=== PATIENT | male | born 1995 | race Caucasian/White ===

== ENCOUNTER 2016-10-19 00:20 | Emergency (ER) | payer SELFPAY ==
[2016-10-19] MEDS ORDERED: Albuterol/Ipratropium 3.0-0.5 MG/3 ML Neb Soln NEB ONE (00:45)
--- NOTE | 2016-10-19 00:45 | EDM.PDOC ---
ED HPI GENERAL MEDICAL PROBLEM - General Chief Complaint: Respiratory Problem Stated Complaint: ASTHMA Time Seen by Provider: 10/19/16 00:44 Source of Information: Reports: Patient - History of Present Illness INITIAL COMMENTS - FREE TEXT/NARRATIVE: HISTORY AND PHYSICAL: History of present illness: []Patient presents with history of asthma has been out of Advair and does not have a compressor for his DuoNeb sent home, he is in no distress at this time he has been having some problems with wheezing and shortness of breath since he has been out of Advair he has had cough and intermittent shortness of breath for 2 weeks since being out of his medication. No current shortness of breath no fever nausea vomiting chills sweats no chest pain shortness breath headache dizziness or palpitation no bowel or urine symptoms Review of systems: As per history of present illness and below otherwise all systems reviewed and negative. Past medical history: As per history of present illness and as reviewed below otherwise noncontributory. Surgical history: As per history of present illness and as reviewed below otherwise noncontributory. Social history: No reported history of drug or alcohol abuse. Family history: As per history of present illness and as reviewed below otherwise noncontributory. Physical exam: HEENT: Atraumatic, normocephalic, pupils reactive, negative for conjunctival pallor or scleral icterus, mucous membranes moist, throat clear, neck supple, nontender, trachea midline. Lungs: Clear to auscultation, breath sounds equal bilaterally, chest nontender. Heart: S1S2, regular, negative for clicks, rubs, or JVD. Abdomen: Soft, nondistended, nontender. Negative for masses or hepatosplenomegaly. Negative for costovertebral tenderness. Pelvis: Stable nontender. Genitourinary: Deferred. Rectal: Deferred. Extremities: Atraumatic, negative for cords or calf pain. Neurovascular unremarkable. Neuro: Awake, alert, oriented. Cranial nerves II through XII unremarkable. Cerebellum unremarkable. Motor and sensory unremarkable throughout. Exam nonfocal. Diagnostics: []Chest x-ray Therapeutics: []DuoNeb Advair discus 250 per 5 HFA rescue inhaler Follow-up with primary care and establish care A compressor may be obtained med [facility] Impression: []Asthma Definitive disposition and diagnosis as appropriate pending reevaluation and review of above. chest area Pain Score (Numeric/FACES): 3 - Related Data Allergies Allergy/AdvReac Type Severity Reaction Status Date / Time No Known Allergies Allergy Verified 10/19/16 00:33 Home Meds: Home Meds Albuterol [Proventil HFA] 6.7 gm INH Q4H 10/19/16 [History] Fluticasone/Salmeterol [Advair Diskus 250-50] 1 puff INH ONETIME 10/19/16 [ History] Past Medical History HEENT History: Reports: None Cardiovascular History: Reports: None Respiratory History: Reports: Asthma Gastrointestinal History: Reports: None Genitourinary History: Reports: None Musculoskeletal History: Reports: None Neurological History: Reports: Seizure Psychiatric History: Reports: Anxiety, Depression Endocrine/Metabolic History: Reports: None Hematologic History: Reports: None Immunologic History: Reports: None Oncologic (Cancer) History: Reports: None Dermatologic History: Reports: None - Infectious Disease History Infectious Disease History: Reports: None Social & Family History - Family History Family Medical History: Noncontributory - Tobacco Use Smoking Status *Q: Current Every Day Smoker Years of Tobacco use: 1 Packs/Tins Daily: 5 Tobacco Use Comment: stated quit a week ago - Caffeine Use Caffeine Use: Reports: Energy Drinks, Soda - Recreational Drug Use Recreational Drug Use: Yes Drug Use in Last 12 Months: Yes Recreational Drug Type: Reports: Marijuana/Hashish ED ROS GENERAL - Review of Systems Review Of Systems: ROS reveals no pertinent complaints other than HPI. ED EXAM, GENERAL - Physical Exam Exam: See Below Course - Vital Signs Last Recorded V/S: Last Vital Signs Temp 36.6 C 10/19/16 00:33 Pulse 76 10/19/16 00:33 Resp 18 10/19/16 00:33 BP 135/76 10/19/16 00:33 Pulse Ox 98 10/19/16 00:33 - Orders/Labs/Meds Orders: Active Orders 24 hr Category Date Time Status RT Aerosol Therapy [RC] ASDIRECTED Care 10/19/16 00:45 Active Chest 2V [CR] Stat Exams 10/19/16 00:46 Ordered Meds: Medications Discontinued Medications Generic Name Dose Route Start Last Admin Trade Name Freq PRN Reason Stop Dose Admin Albuterol/Ipratropium 3 ml 10/19/16 00:45 Duoneb 3.0-0.5 Mg/3 Ml NEB 07/12/17 00:46 ONETIME ONE Departure - Departure Time of Disposition: 00:55 Disposition: Home, Self-Care 01 Condition: Good Clinical Impression: Asthma dependent on inhaled steroids - Discharge Information Forms: ED Department Discharge Additional Instructions: Medication as prescribed Return if symptoms persist or worsen Follow-up and establish care with a primary care provider number provided Fred Belg[facility] - Primary [facility] [address] [place] [phone] [employer] store on the opposite side of our parking lot can provide you with a compressor for your nebulizer treatments The following information is given to patients seen in the emergency department who are being discharged to home. This information is to outline your options for follow-up care. We provide all patients seen in our emergency department with a follow-up referral. The need for follow-up, as well as the timing and circumstances, are variable depending upon the specifics of your emergency department visit. If you don't have a primary care physician on staff, we will provide you with a referral. We always advise you to contact your personal physician following an emergency department visit to inform them of the circumstance of the visit and for follow-up with them and/or the need for any referrals to a consulting specialist. The emergency department will also refer you to a specialist when appropriate. This referral assures that you have the opportunity for follow-up care with a specialist. All of these measure are taken in an effort to provide you with optimal care, which includes your follow-up. Under all circumstances we always encourage you to contact your private physician who remains a resource for coordinating your care. When calling for follow-up care, please make the office aware that this follow-up is from your recent emergency room visit. If for any reason you are refused follow-up, please contact the [facility] emergency department at and asked to speak to the emergency department charge nurse. - My Orders Last 24 Hours: My Active Orders 10/19/16 00:45 RT Aerosol Therapy [RC] ASDIRECTED 10/19/16 00:46 Chest 2V [CR] Stat - Assessment/Plan Last 24 Hours: My Active Orders 10/19/16 00:45 RT Aerosol Therapy [RC] ASDIRECTED 10/19/16 00:46 Chest 2V [CR] Stat
[2016-10-19 01:50] VITALS: BP 127/74
--- NOTE | 2016-10-19 10:56 | CR ---
EXAM DATE: 10/19/16 PATIENT'S AGE: 20 Patient: REMI CALLAHAN Facility: [place], [place] Site . Site : 1995 Study: XRay Chest [id number]/[id number] 1:19:12 AM Ordering Physician: Syeda Martins Final Report: INDICATIONS: Shortness of breath. Pain. History of asthma. TECHNIQUE: Chest 2 view. COMPARISON: None FINDINGS: No pneumothorax, pleural effusion or airspace consolidation. Cardiac and mediastinal contours are within normal limits. Upper abdomen and osseous structures show no acute abnormality. IMPRESSION: No evidence of acute cardiopulmonary disease. Dictated by Jensen Swan MD @ 10/19/2016 1:31:30 AM Dictated by: Jensen Swan MD @ 10/19/2016 01:31:45 (Electronic Signature) Report Signed by Proxy. [facility]
== END 2016-10-19 01:50 | disposition home or self-care (01) ==
LOC: MW.ED 00:20
DX: J45.909 Unspecified asthma, uncomplicated (principal); Z79.51 Long term (current) use of inhaled steroids; F17.210 Nicotine dependence, cigarettes, uncomplicated
CPT/HCPCS: 71020; 71020-26; 99282; 99284